=== PATIENT | male | born 1950 | race Caucasian/White ===

== ENCOUNTER 2022-02-16 16:31 | Emergency (ER) | payer MEDICARE ==
[~2022-02-16] VITALS: Ht 185.4 cm; Wt 90.7 kg
[2022-02-16 16:45] VITALS: BP_SYST 181
--- NOTE | 2022-02-16 16:53 | NUR ---
BIBS WITH C/C OF DIFFICULTY WITH URINATION AND CONSTIPATION. PT REPORTS LAST BM 2-3 DAYS AGO. PT LAST VOID AT 1200. PT STATES WHEN HE VOIDS THE VOLUME OF HIS URINE IS "NOT A LOT, BUT MEDIUM". WITH PT WHO STATES THAT PT HAD A PROCEDURE TO HIS URETHRA APPROXIMATELY 7 YEARS AGO BUT DOES NOT RECALL WHAT WAS DONE. PT STATES HE DID NOT HAVE ANY PROCEDURE FOR URINATION. DENIES ANY HX OF PROSTATE ENLARGEMENT. REPORTS PT IS FORGETFUL TO MEDICAL HX AND CONFUSED AT TIMES. PT HYPERTENSIVE, DR. HINOJOSA AWARE.
--- NOTE | 2022-02-16 16:57 | NUR ---
DR. HINOJOSA ASSESSED PT IN TRIAGE ROOM.
[2022-02-16] MEDS ORDERED: KETOROLAC TROMETHAMINE 30 MG VIAL IVP ONE (17:00)
[2022-02-16] MEDS ORDERED: NACL 0.9% 1,000 ML IV ONE (17:00)
--- NOTE | 2022-02-16 17:00 | NUR ---
PLACED IN BED 4, REPORT GIVEN TO LUIS HUNT.
--- NOTE | 2022-02-16 17:00 | NUR ---
PT notes successful emptying of bladder and BM occurred. Pt has no distention denies tenderness and requesting discharge stating " I solved my problem! "
--- NOTE | 2022-02-16 17:08 | NUR ---
REQUESTED FAX OF [facility]OT OF PT [place] [facility]. SPOKE TO [facility] [place] [facility]
--- NOTE | 2022-02-16 17:11 | NUR ---
PT TAKEN FOR CT SCAN.
--- NOTE | 2022-02-16 17:35 | NUR ---
Patient given written and verbal discharge instructions and verbalizes understanding. ER MD discussed with patient the results and treatment provided. Patient in stable condition. ID arm band removed. Opportunity for questions provided and answered. Medication side effect fact sheet provided.
[2022-02-16 17:36] VITALS: BP_SYST 148
== END 2022-02-16 17:36 | disposition home or self-care (01) ==
LOC: SED 16:31
DX: K59.00 Constipation, unspecified (principal); R10.84 Generalized abdominal pain; F11.90 Opioid use, unspecified, uncomplicated; Z79.899 Other long term (current) drug therapy
CPT/HCPCS: 76376; 99284

== ENCOUNTER 2023-04-07 18:34 | Emergency (ER) | payer MEDICARE ==
[~2023-04-07] VITALS: Ht 185.4 cm; Wt 93.0 kg
[2023-04-07 18:46] VITALS: BP_SYST 160; PULSE 86; RESP 18; TEMP 98.3; O2SAT 98
[2023-04-07] MEDS ORDERED: SODIUM PHOSPHATE,MONO-DIBASIC 133 ML ENEMA RC ONE (20:15)
[2023-04-07] MEDS ORDERED: GOLYTELY / COLYTE SOLUTION 4 LITERS PO ONE (20:15)
[2023-04-07 20:16] LABS: BASOPHILS % (AUTO) 0.2 % (0.0-2.0); EOSINOPHILS % (AUTO) 0.2 % (0.0-4.0); HEMATOCRIT 44.1 % (36-54); HEMOGLOBIN 15.1 g/dL (14.0-18.0); LYMPHOCYTES # (AUTO) 0.8 K/uL (1.0-5.5); MEAN CORPUSCULAR HEMOGLOBIN 31 pg (27-31); MEAN CORPUSCULAR HGB CONC 34 % (32-36); MEAN CORPUSCULAR VOLUME 91 fL (79.0-98.0); MONOCYTES # (AUTO) 0.6 K/uL (0.0-1.0); MONOCYTES % (AUTO) 4.6 % (1.7-9.3); NEUTROPHILS # (AUTO) 12.1 K/uL (1.8-7.7); PLATELET COUNT (AUTO) 244 K/uL (130-430); RED BLOOD CELL COUNT(AUTO) 4.87 MIL/uL (4.2-6.2); RED CELL DISTRIBUTION WIDTH 12.9 % (9.0-15.0); WHITE BLOOD COUNT (AUTO) 13.6 K/uL (4.8-10.8)
[2023-04-07 20:33] LABS: INR 1.1 (0.80-1.20); PROTHROMBIN TIME 11.2 SECS (9.5-12.5)
[2023-04-07 20:34] LABS: ALANINE AMINOTRANSFERASE 34 U/L (12-78); ALBUMIN 3.8 g/dL (3.4-4.8); ANION GAP 5 (5-15); ASPARTATE AMINOTRANSFERASE 25 U/L (10-37); CALCIUM 9.4 mg/dL (8.4-11.0); CARBON DIOXIDE 30 mmol/L (23-29); CHLORIDE 102 mmol/L (98-107); CREATININE 0.95 mg/dL (0.55-1.30); GLUCOSE 122 mg/dL (74-106); POTASSIUM 3.5 mmol/L (3.5-5.1); SODIUM SERUM 137 mmol/L (136-145); TOTAL BILIRUBIN 0.4 mg/dL (0.0-1.0); TOTAL PROTEIN, SERUM 7.3 g/dL (6.4-8.3); UREA NITROGEN, BLOOD 15 mg/dL (8-21)
[2023-04-07 20:39] LABS: AMYLASE 52 U/L (0-100); LIPASE 21 U/L (16-77)
[2023-04-07 21:25] VITALS: BP_SYST 125; PULSE 74; RESP 18; TEMP 97.1; O2SAT 98
== END 2023-04-07 21:25 | disposition home or self-care (01) ==
LOC: SED 18:34
DX: K59.00 Constipation, unspecified (principal); R10.30 Lower abdominal pain, unspecified; J44.9 Chronic obstructive pulmonary disease, unspecified; Z85.46 Personal history of malignant neoplasm of prostate; Z79.899 Other long term (current) drug therapy
CPT/HCPCS: 36415; 76376; 80053; 82150; 83605; 83690; 85025; 85610-TC; 85730-TC; 99284